=== PATIENT | female | born 1965 | race Caucasian/White ===

== ENCOUNTER → 2017-02-06 | Outpatient (CLI) | payer MEDICARE, OTHER ==
[2017-02-06 13:51] VITALS: BP 160/71; PULSE 61; TEMP 98.8; BMI 47.9
--- NOTE | 2017-02-06 16:46 | P.HPBAR ---
Bariatric H&P - History & Physicial H&P Date: 02/06/17 History & Physicial: Visit/CC: lap band follow up Patient initial contact: Initial weight: Initial weight in pounds: Height: 5 ft 8 in Initial BMI: Last weight: Current weight: 143.154 kg Current weight in pounds: 315.60 Current BMI: 47.9 [place] body weight (based on NIH guidelines): 63.503 kg Excess body weight loss: The patient is a 51 year-old F who presents for Bariatric Assessment. Patient presents today for lab band follow. He has been over 5 years since seen her. Her LAP-BAND was placed approximately 12-13 years ago. He has had weight gain which that her band adjusted. Past Medical History Past Medical History: Cancer Additional Past Medical History / Comment(s): LEFT Breast cancer 2003 History of Any Multi-Drug Resistant Organisms: None Reported Past Surgical History: Bariatric Surgery, Cholecystectomy Additional Past Surgical History / Comment(s): lap band sx, LEFT breast Lumpectomy x2 (2003), Past Anesthesia/Blood Transfusion Reactions: No Reported Reaction Past Psychological History: No Psychological Hx Reported, Bipolar Smoking Status: Former smoker Past Alcohol Use History: Occasional Additional Past Alcohol Use History / Comment(s): smoked for about seventeen years, quit in 2006 Past Drug Use History: Marijuana Additional Drug Use History / Comment(s): Medical marijuana usage. Surgical - Exam Vital Signs Temp Pulse BP 98.8 F 61 160/71 02/06/17 13:48 02/06/17 13:48 02/06/17 13:48 - General well developed, no distress - Abdomen Abdomen: soft, non tender Bariatric Assessment & Plan Plan: Patient had 3 mL added to her LAP-BAND. She was ill drink water without difficulty. She'll follow-up in one month to recheck. Bariatric Checklist Checklist: Plan: Checklist: EGD: 1. Hiatal hernia: 2. H. Pylori: HgbA1c: Vitamin D: Smoking: Former smoker Primary care physician referral: Psychiatry clearance: Cardiology clearance: Sleep study: Diet journal: VTE risk score: VTE risk level: Rehab needs at discharge:
== END | disposition home or self-care (01) ==
LOC: BARWHC3 12:59
PROVIDERS: ATTEND Surgery
DX: Z09 Encounter for follow-up examination after completed treatment for conditions other than malignant neoplasm (principal); Z98.84 Bariatric surgery status; Z87.891 Personal history of nicotine dependence
CPT/HCPCS: 99212

== ENCOUNTER → 2017-03-20 | Outpatient (CLI) | payer MEDICARE, OTHER ==
[2017-03-20 14:11] VITALS: BP 136/73; PULSE 103; RESP 16; TEMP 98.5; BMI 46.0
--- NOTE | 2017-03-20 14:14 | P.HPBAR ---
Bariatric H&P - History & Physicial H&P Date: 03/20/17 History & Physicial: Visit/CC: band adj Patient initial contact: Initial weight: 142.882 kg Initial weight in pounds: 315.00 Height: 5 ft 8 in Initial BMI: 47.9 Last weight: 315 Current weight: 137.58 kg Current weight in pounds: 303.00 Current BMI: 46.0 [place] body weight (based on NIH guidelines): 63.503 kg Excess body weight loss: 6.8% The patient is a 51 year-old F who presents for Bariatric assessment. Patient presents today for LAP-BAND follow-up. She has lost 12 pounds her last visit a month ago. She thinks she should be restricted more. She thinks she is eating more than she should be able to. Past Medical History Past Medical History: Cancer Additional Past Medical History / Comment(s): LEFT Breast cancer 2003 History of Any Multi-Drug Resistant Organisms: None Reported Past Surgical History: Bariatric Surgery, Cholecystectomy Additional Past Surgical History / Comment(s): lap band sx, LEFT breast Lumpectomy x2 (2003), Past Anesthesia/Blood Transfusion Reactions: No Reported Reaction Smoking Status: Former smoker Surgical - Exam Vital Signs Temp Pulse Resp BP 98.5 F 103 H 16 136/73 03/20/17 14:08 03/20/17 14:08 03/20/17 14:08 03/20/17 14:08 - General well developed, no distress - Eyes PERRL - ENT normal pinna - Neck no masses - Respiratory normal expansion - Cardiovascular Rhythm: regular - Abdomen Abdomen: soft, non tender Bariatric Assessment & Plan Plan: The patient LAP-BAND was adjusted. She had 1 mL added to her band. She currently has 4 mL in the band. She'll follow-up: 1. Bariatric Checklist Checklist: Plan: Checklist: EGD: 1. Hiatal hernia: 2. H. Pylori: HgbA1c: Vitamin D: Smoking: Former smoker Primary care physician referral: Psychiatry clearance: Cardiology clearance: Sleep study: Diet journal: VTE risk score: VTE risk level: Rehab needs at discharge:
== END ==
LOC: BARWHC3 13:30
PROVIDERS: ATTEND Surgery
DX: Z48.815 Encounter for surgical aftercare following surgery on the digestive system (principal); Z98.84 Bariatric surgery status; F17.200 Nicotine dependence, unspecified, uncomplicated
CPT/HCPCS: 99212

== ENCOUNTER → 2017-06-05 | Outpatient (CLI) | payer MEDICARE, OTHER ==
--- NOTE | 2017-06-05 16:00 | P.HPBAR ---
Bariatric H&P - History & Physicial H&P Date: 06/05/17 History & Physicial: Visit/CC: Patient initial contact: Initial weight: 142.882 kg Initial weight in pounds: Height: Initial BMI: Last weight: 303 Current weight: 310 Current weight in pounds: Current BMI: [place] body weight (based on NIH guidelines): Excess body weight loss: The patient is a 51 year-old F who presents for Bariatric Assessment. Patient presents today for lab band follow. She just returned from [place]. She is requesting a fill. Past Medical History Past Medical History: Cancer Additional Past Medical History / Comment(s): LEFT Breast cancer 2003 History of Any Multi-Drug Resistant Organisms: None Reported Past Surgical History: Bariatric Surgery, Cholecystectomy Additional Past Surgical History / Comment(s): lap band sx, LEFT breast Lumpectomy x2 (2003), Past Anesthesia/Blood Transfusion Reactions: No Reported Reaction Past Psychological History: No Psychological Hx Reported, Bipolar Smoking Status: Former smoker Past Alcohol Use History: Occasional Additional Past Alcohol Use History / Comment(s): smoked for about seventeen years, quit in 2006 Past Drug Use History: Marijuana Additional Drug Use History / Comment(s): Medical marijuana usage. Surgical - Exam - General well developed, no distress - Eyes PERRL - Abdomen Abdomen: soft, non tender Bariatric Assessment & Plan Plan: Patient LAP-BAND was adjusted. She had 2 mL added to her band. She will follow -up in 2-4 weeks. Bariatric Checklist Checklist: Plan: Checklist: EGD: 1. Hiatal hernia: 2. H. Pylori: HgbA1c: Vitamin D: Smoking: Former smoker Primary care physician referral: Psychiatry clearance: Cardiology clearance: Sleep study: Diet journal: VTE risk score: VTE risk level: Rehab needs at discharge:
[2017-06-05 16:01] VITALS: BP 157/80; PULSE 79; RESP 16; TEMP 99.4; BMI 47.1
== END | disposition home or self-care (01) ==
LOC: BARWHC3 15:42
PROVIDERS: ATTEND Surgery
DX: Z48.815 Encounter for surgical aftercare following surgery on the digestive system (principal); Z87.891 Personal history of nicotine dependence; Z98.84 Bariatric surgery status
CPT/HCPCS: 99212